=== PATIENT | female | born 1995 | race Caucasian/White ===

== ENCOUNTER 2022-03-07 23:09 | Emergency (ER) | payer OTHER ==
[2022-03-07 23:18] VITALS: BP 109/80
--- NOTE | 2022-03-08 00:48 | ED Physician Documentation ---
PD HPI HEENT - Stated complaint Stated Complaint: RT EYE/THROAT PX - Chief complaint Chief Complaint: Heent - Additional information Additional information: Patient is 27-year-old female presenting with sore throat, eye redness, cough. Symptoms ongoing x2 days. Eye discharge began today. Denies fever at home. No known sick contacts.Does not wear contact lenses. Review of Systems Ten Systems: 10 systems reviewed and negative Constitutional: denies: Fever Eyes: reports: Discharge, Irritation Ears: denies: Loss of hearing Nose: denies: Rhinorrhea / runny nose Throat: reports: Sore throat. denies: Dental pain / toothache Cardiac: denies: Chest pain / pressure Respiratory: reports: Cough GI: denies: Abdominal Pain, Abdominal Swelling : denies: Dysuria PD PAST MEDICAL HISTORY - Past Medical History Past Medical History: No - Past Surgical History Past Surgical History: No - Present Medications Home Medications: Ambulatory Orders Medication Instructions Recorded Confirmed Benzonatate [Tessalon] 200 mg PO ONCE #30 cap 03/08/22 Erythromycin Base [Erythromycin 1 applic OP Q6HR #3.5 gm 03/08/22 Ophthalmic Ointment] - Allergies Allergies/Adverse Reactions: Allergies Allergy/AdvReac Type Severity Reaction Status Date / Time No Known Drug Allergies Allergy Verified 03/07/22 23:17 - Social History Does the pt smoke?: No Smoking Status: Never smoker Does the pt drink ETOH?: Yes - Immunizations Immunizations are current?: Yes PD ED PE NORMAL - Vitals Vital signs reviewed: Yes - General General: Alert and oriented X 3 - HEENT HEENT: Atraumatic, PERRL, Ears normal, Moist mucous membranes (Conjunctival injections bilaterally.), Other (Erythematous posterior oropharynx without exudates. No uvular deviation, sublingual elevation or tracheal immobility) - Neck Neck: Supple, no meningeal sign - Cardiac Cardiac: RRR, No gallop - Respiratory Respiratory: No respiratory distress, Clear bilaterally Results - Vitals Vitals: Vital Signs - 24 hr 03/07/22 23:14 Temperature 36.3 C L Heart Rate 82 Respiratory 14 Rate Blood Pressure 109/80 O2 Saturation 99 PD MEDICAL DECISION MAKING - ED course Complexity details: d/w patient ED course: Patient is 27-year-old female presenting to the emergency department with 2 days cough, sore throat and now 1 day of conjunctival injections bilaterally. Afebrile, hemodynamically stable on arrival to the emergency department. Clear aeration in all lung mcguire with no respiratory distress appreciated. Posterior oropharynx had erythema without exudates. Conjunctival injections were noted bilaterally. Patient denied any trauma to her eye and reported normal visual acuity. Patient's overall presentation is most consistent with a viral syndrome with now viral conjunctivitis. We will however initiate erythromycin ophthalmologic ointment. Patient additionally given dose Decadron and Tessalon in the emergency department for symptomatic management. Will discharge on ongoing course of erythromycin ophthalmologic ointment as well as Tessalon. Encourage careful follow-up with primary care. Did obtain respiratory viral swab in the emergency department which is pending at this time. Departure - Departure Disposition: 01 Home, Self Care Clinical Impression: Viral syndrome, Conjunctivitis Instructions: ED Viral Syndrome, ED Conjunctivitis Nb Prescriptions: Erythromycin Base [Erythromycin Ophthalmic Ointment] 1 applic OP Q6HR #3.5 gm Benzonatate [Tessalon] 200 mg PO ONCE #30 cap Comments: Thank you for allowing us to care for you this evening at [facility].
[2022-03-08] MEDS ORDERED: ERYTHROMYCIN OPHTH OINT 1 GM TUBE EACHEYE STA (00:56)
[2022-03-08] MEDS ORDERED: DEXAMETHASONE 10 MG/ML VIAL PO STA (00:56)
[2022-03-08] MEDS ORDERED: CHERRY SYRUP 10 ML UDC PO ONE (00:56)
[2022-03-08] MEDS ORDERED: BENZONATATE 100 MG CAPSULE PO STA (00:56)
[2022-03-08 02:19] LABS: B. PARAPERTUSSIS- RESP PCR PAN NOT DETECTED; B. PERTUSSIS- RESP PCR PANEL NOT DETECTED; C. PNEUMONIAE- RESP PCR PANEL NOT DETECTED; CORONAVIRUS 229E-RESP PCR NOT DETECTED; CORONAVIRUS HKU1-RESP PCR NOT DETECTED; CORONAVIRUS NL63-RESP PCR NOT DETECTED; CORONAVIRUS OC43-RESP PCR NOT DETECTED; HUMAN METAPNEUMOVIRUS NOT DETECTED; INFLUENZA A- RESP PCR PANEL NOT DETECTED; INFLUENZA B - RESP PCR PANEL NOT DETECTED; M. PNEUMONIAE- RESP PCR PANEL NOT DETECTED; PARAINFLUENZA VIRUS 1 NOT DETECTED; PARAINFLUENZA VIRUS 2 NOT DETECTED; PARAINFLUENZA VIRUS 3 NOT DETECTED; PARAINFLUENZA VIRUS 4 NOT DETECTED; RHINOVIRUS/ENTEROVIRUS NOT DETECTED; RSV- RESP PCR PANEL NOT DETECTED; SARS-CoV-2 -RESP PCR PANEL NOT DETECTED
--- NOTE | 2022-03-08 14:04 | ED Physician Documentation ---
ED Addendum - Addendum Addendum: 03/08/22 14:04 Received a call from the pharmacy regarding the Tessalon prescription. The prescription did not come across with any instructions. Tessalon 200 mg p.o. 3 times daily as needed cough, dispense #30.
== END 2022-03-08 01:56 | disposition home or self-care (01) ==
LOC: ED 23:09
DX: B34.9 Viral infection, unspecified (principal); B30.9 Viral conjunctivitis, unspecified; Z20.822 Contact with and (suspected) exposure to COVID-19
CPT/HCPCS: 87633; 99283; A9270; J3490

== ENCOUNTER 2022-03-13 15:19 | Emergency (ER) | payer OTHER ==
[2022-03-13 15:35] VITALS: BP 122/65
[2022-03-13] MEDS ORDERED: IBUPROFEN 600 MG TABLET PO STA (16:02)
--- NOTE | 2022-03-13 16:13 | XRAY Report ---
PROCEDURE: Foot 3 View RT INDICATIONS: foot inj TECHNIQUE: 3 views of the foot were acquired. COMPARISON: None FINDINGS: Bones: No fractures or dislocations. No suspicious bony lesions. Soft tissues: No tibiotalar joint effusion. Achilles tendon appears normal. IMPRESSION: No evidence of acute bony abnormality of the right foot. Reviewed by: Malcolm Mensah MD on 03/13/2022 4:12 PM PDT Approved by: Malcolm Mensah MD on 03/13/2022 4:12 PM PDT Station ID: [id number]
--- NOTE | 2022-03-13 16:28 | ED Physician Documentation ---
PD HPI LOWER EXT INJURY - Stated complaint Stated Complaint: RIGHT FOOT INJURY - Chief complaint Chief Complaint: Trauma Ext - Additional information Additional information: Patient is 27-year-old female with right foot injury. Dropped a 45 pound weight on her foot earlier today. Denies previous orthopedic injuries to the same foot. Has not been able to ambulate since the event. Took Tylenol at home for pain control. Review of Systems Ten Systems: 10 systems reviewed and negative PD PAST MEDICAL HISTORY - Past Surgical History Past Surgical History: No - Present Medications Home Medications: Ambulatory Orders Medication Instructions Recorded Confirmed Benzonatate [Tessalon] 200 mg PO ONCE #30 cap 03/08/22 Erythromycin Base [Erythromycin 1 applic OP Q6HR #3.5 gm 03/08/22 Ophthalmic Ointment] - Allergies Allergies/Adverse Reactions: Allergies Allergy/AdvReac Type Severity Reaction Status Date / Time No Known Drug Allergies Allergy Verified 03/13/22 15:35 - Social History Does the pt smoke?: No Smoking Status: Never smoker Does the pt drink ETOH?: Yes - Immunizations Immunizations are current?: Yes PD ED PE NORMAL - Vitals Vital signs reviewed: Yes - General General: Alert and oriented X 3 - HEENT HEENT: Atraumatic - Respiratory Respiratory: No respiratory distress - Extremities Extremities: Other (There is an abrasion on the dorsal aspect of the right foot. DP and PT pulses are palpable. Normal sensation in all dermatomes. Moderate bruising and soft tissue swelling is appreciated. There is no tenderness to either of the lateral mall boli and no point tenderness to the base of the fifth me) Results - Vitals Vitals: Vital Signs - 24 hr 03/13/22 15:31 Temperature 36.4 C L Heart Rate 88 Respiratory 14 Rate Blood Pressure 122/65 O2 Saturation 99 Oxygen O2 Source Room air PD MEDICAL DECISION MAKING - ED course Complexity details: reviewed results, d/w patient ED course: Patient is 27-year-old female with bruising and a superficial abrasion to the dorsum of her foot after dropping a weight on her foot earlier this morning. Neurovascularly intact. No indications tendon involvement. Provided Motrin in the emergency department for pain control. Provided hard soled shoe and crutches for use as needed. X-rays negative for acute fracture. Wound care instructions and follow-up instructions detailed prior to discharge. Departure - Departure Disposition: 01 Home, Self Care Clinical Impression: Foot injury Instructions: ED Contusion Lower Extr Ch Comments: Thank you for allowing us to care for you today at [facility]. X-rays taken today did not show any fracture. You do have a prominent abrasion and bruising to the top of your foot. Please continue to use the hard soled shoe as well as the crutches provided here in the emergency department as needed for pain control. I recommend frequent application of ice packs and keeping your lower extremity elevated as much as possible. Alternating Motrin and Tylenol Is also an excellent strategy for pain control. You can take 650 mg of Tylenol followed by 600 mg of Motrin alternating every 4 hours at home. Your injury should heal over the course of the next 1 to 2 weeks however if you find yourself having persistent pain that does not appear to be improving within 1 week follow-up with either your primary care doctor or return to the emergency department.
== END 2022-03-13 16:25 | disposition home or self-care (01) ==
LOC: ED 15:19
DX: S99.921A Unspecified injury of right foot, initial encounter (principal); W20.8XXA Other cause of strike by thrown, projected or falling object, initial encounter
CPT/HCPCS: 73630; 99281; 99283; A9270

== ENCOUNTER 2022-11-10 10:47 | Emergency (ER) | payer OTHER ==
[2022-11-10] MEDS ORDERED: IBUPROFEN 800 MG TABLET PO STA (11:21)
[2022-11-10] MEDS ORDERED: PSEUDOEPHEDRINE 30 MG TABLET PO STA (11:21)
--- NOTE | 2022-11-10 11:47 | ED Physician Documentation ---
History of Present Illness - Stated complaint Stated Complaint: CONGESTION,BODY ACHES - Chief complaint Chief Complaint: General - History obtained from History obtained from: Patient - History of Present Illness Pain level max: 3 Pain level now: 3 - Additonal information Additional information: 27-year-old female presents to the emergency department stating that she has had several days of cough, congestion, sore throat. She is supposed to go to work tonight. She is active duty [employer]. Requesting a work note. Review of Systems Constitutional: denies: Fever Nose: reports: Rhinorrhea / runny nose, Congestion Respiratory: reports: Cough GI: denies: Abdominal Pain, Vomiting, Diarrhea : denies: Now EGA PD PAST MEDICAL HISTORY - Past Medical History Past Medical History: No - Past Surgical History Past Surgical History: No - Present Medications Home Medications: Ambulatory Orders Medication Instructions Recorded Confirmed Benzonatate [Tessalon] 200 mg PO ONCE #30 cap 03/08/22 Erythromycin Base [Erythromycin 1 applic OP Q6HR #3.5 gm 03/08/22 Ophthalmic Ointment] - Allergies Allergies/Adverse Reactions: Allergies Allergy/AdvReac Type Severity Reaction Status Date / Time No Known Drug Allergies Allergy Verified 03/13/22 15:35 - Social History Does the pt smoke?: No Smoking Status: Never smoker Does the pt drink ETOH?: Yes - Immunizations Immunizations are current?: Yes PD ED PE NORMAL - Vitals Vital signs reviewed: Yes - General General: Alert and oriented X 3, No acute distress - HEENT HEENT: PERRL, Ears normal, Moist mucous membranes, Pharynx benign - Neck Neck: Supple, no meningeal sign, No adenopathy - Cardiac Cardiac: RRR, No murmur, Strong equal pulses - Respiratory Respiratory: No respiratory distress, Clear bilaterally - Abdomen Abdomen: Soft, Non tender, Non distended - Derm Derm: Warm and dry, No rash - Extremities Extremities: No edema - Neuro Neuro: Alert and oriented X 3 - Psych Psych: Normal mood, Normal affect Results - Vitals Vitals: Vital Signs - 24 hr 11/10/22 11/10/22 10:58 13:15 Temperature 36.8 C 36.7 C Heart Rate 75 88 Respiratory 18 18 Rate Blood Pressure 117/77 114/57 L O2 Saturation 100 98 Oxygen O2 Source Room air - Labs Labs: Laboratory Tests 11/10/22 11:40 Nasal Adenovirus (PCR) NOT DETECTED Nasal B. parapertussis DNA (PCR) NOT DETECTED Nasal Coronavir 229E PCR NOT DETECTED Nasal Coronavir HKU1 PCR NOT DETECTED Nasal Coronavir NL63 PCR NOT DETECTED Nasal Coronavir OC43 PCR NOT DETECTED Nasal Enterovir/Rhinovir PCR NOT DETECTED Nasal Influenza B PCR NOT DETECTED Nasal Influenza A PCR NOT DETECTED Nasal Parainfluen 1 PCR NOT DETECTED Nasal Parainfluen 2 PCR NOT DETECTED Nasal Parainfluen 3 PCR NOT DETECTED Nasal Parainfluen 4 PCR NOT DETECTED Nasal RSV (PCR) NOT DETECTED Nasal B.pertussis DNA PCR NOT DETECTED Nasal C.pneumoniae (PCR) NOT DETECTED Charly Human Metapneumo PCR NOT DETECTED Nasal M.pneumoniae (PCR) NOT DETECTED Nasal SARS-CoV-2 (PCR) DETECTED A PD Medical Decision Making - ED course Complexity details: reviewed results, considered differential, d/w patient ED course: 27-year-old female presents to the emergency department with cough, congestion, sore throat, ongoing for the past several days. Respiratory PCR was ordered, positive for COVID. Patient is well-appearing, nontoxic. Afebrile. No hypoxia. No respiratory distress. She was given pseudoephedrine for congestion. Eating and drinking without difficulty. We did discuss Paxlovid and patient would like to take this for COVID. She has been sick for approximately 3 days. Patient is fully vaccinated. Patient counseled regarding signs and symptoms for which I believe and urgent re-evaluation would be necessary. Patient with good understanding of and agreement to plan and is comfortable going home at this time This document was made in part using voice recognition software. While efforts are made to proofread this document, sound alike and grammatical errors may occur. Departure - Departure Disposition: 01 Home, Self Care Clinical Impression: COVID-19 Condition: Good Instructions: ED Viral Syndrome Follow-Up: JONATHON MICHEL MD [Primary Care Provider] - Comments: You have tested positive for COVID today. Please go home and rest. [place]. You are also given Paxlovid today. Take all of this until gone. Isolation precautions for COVID Day 0 is your first day of symptoms or a positive viral test. Day 1 is the first full day after your symptoms developed or your test specimen was collected. If you have COVID-19 or have symptoms, isolate for at least 5 days. IF YOU: Tested positive for COVID-19 or have symptoms, regardless of vaccination status Stay home for at least 5 days Stay home for 5 days and isolate from others in your home. Wear a well-fitting mask if you must be around others in your home. Do not travel. Ending isolation if you had symptoms End isolation after 5 full days if you are fever-free for 24 hours (without the use of fever-reducing medication) and your symptoms are improving. Ending isolation if you did NOT have symptoms End isolation after at least 5 full days after your positive test. If you got very sick from COVID-19 or have a weakened immune system You should isolate for at least 10 days. Consult your doctor before ending isolation. Take precautions until day 10 Wear a well-fitting mask Wear a well-fitting mask for 10 full days any time you are around others inside your home or in public. Do not go to places where you are unable to wear a mask. Do not travel Do not travel until a full 10 days after your symptoms started or the date your positive test was taken if you had no symptoms. Avoid being around people who are more likely to get very sick from COVID-19. Forms: Activity restrictions Discharge Date/Time: 11/10/22 13:15
[2022-11-10 12:40] LABS: B. PARAPERTUSSIS- RESP PCR PAN NOT DETECTED; B. PERTUSSIS- RESP PCR PANEL NOT DETECTED; C. PNEUMONIAE- RESP PCR PANEL NOT DETECTED; CORONAVIRUS 229E-RESP PCR NOT DETECTED; CORONAVIRUS HKU1-RESP PCR NOT DETECTED; CORONAVIRUS NL63-RESP PCR NOT DETECTED; CORONAVIRUS OC43-RESP PCR NOT DETECTED; HUMAN METAPNEUMOVIRUS NOT DETECTED; INFLUENZA A- RESP PCR PANEL NOT DETECTED; INFLUENZA B - RESP PCR PANEL NOT DETECTED; M. PNEUMONIAE- RESP PCR PANEL NOT DETECTED; PARAINFLUENZA VIRUS 1 NOT DETECTED; PARAINFLUENZA VIRUS 2 NOT DETECTED; PARAINFLUENZA VIRUS 3 NOT DETECTED; PARAINFLUENZA VIRUS 4 NOT DETECTED; RHINOVIRUS/ENTEROVIRUS NOT DETECTED; RSV- RESP PCR PANEL NOT DETECTED; SARS-CoV-2 -RESP PCR PANEL DETECTED
[2022-11-10] MEDS ORDERED: NIRMATRELVIR/RITONAVIR PREPACK PO STA (13:01)
[2022-11-10 13:16] VITALS: BP 114/57
== END 2022-11-10 13:15 | disposition home or self-care (01) ==
LOC: ED 10:47
DX: U07.1 COVID-19 (principal)
CPT/HCPCS: 87633; 99283; A9270; J3490